=== PATIENT | female | born 1995 | race Caucasian/White ===

== ENCOUNTER 2019-09-14 10:26 | Emergency (ER) | payer OTHER, MEDICAID ==
[~2019-09-14] VITALS: Ht 157.5 cm; Wt 108.9 kg
[~2019-09-14 10:26] MED LIST: ALBUTEROL2.5 MG/0.5 INH; COLACE100 MG PO; NEBULIZER MISCELL; NOHOMEMEDICATIONS; PREDNISONE 20 M20 M1 PO; TRINATE TABLET1 TAB; VENTOLIN HFA 1818 GM; VENTOLIN HFA 1818 GM INH; [UNRECOGNIZED DRUG - SUPPLY] MC
[2019-09-14 11:13] LABS: ABSOLUTE BASOPHILS 0.1 thou/uL (0.0-0.2); ABSOLUTE EOSINOPHILS 0.4 thou/uL (0.0-0.7); ABSOLUTE LYMPHOCYTES 2.5 thou/uL (0.8-5.3); ABSOLUTE MONOCYTES 0.7 thou/uL (0.0-1.2); ABSOLUTE NEUTROPHILS 6.5 thou/uL (1.6-8.1); BASOPHILS 0.8 %; EOSINOPHILS 4.4 %; HEMOGLOBIN 14.4 gm/dL (12.0-15.0); LYMPHOCYTES 24.8 %; MCH 31.2 pg (26.0-34.0); MCHC 35.2 g/dL (28.0-37.0); MCV 88.6 fL (80.0-100.0); MONOCYTES 6.4 %; MPV 8.1 fl. (7.2-11.1); NUCLEATED RBCS 0 /100WBC; PLATELET COUNT* 232 thou/uL (150-400); POLYS 63.6 %; RBC 4.63 mil/uL (4.20-5.00); RDW-CV 13.4 % (10.5-14.5); WBC 10.2 thou/uL (4.0-11.0)
[2019-09-14 11:19] LABS: URINE BILIRUBIN NEGATIVE (Negative); URINE BLOOD TRACE (Negative); URINE CLARITY CLEAR; URINE COLOR YELLOW; URINE GLUCOSE-RANDOM NEGATIVE (Negative); URINE KETONES NEGATIVE (Negative); URINE LEUKOCYTES-REFLEX 2+ (Negative); URINE NITRITE-REFLEX NEGATIVE (Negative); URINE PROTEIN NEGATIVE (Negative); URINE UROBILINOGEN 0.2 E.U./dl (0.2-1.0)
[2019-09-14 11:23] LABS: CALCIUM 8.3 mg/dL (8.5-10.1); CREATININE 0.6 mg/dL (0.6-1.3); POTASSIUM 3.9 mmol/L (3.5-5.1)
[2019-09-14 11:27] LABS: TOTAL BILIRUBIN 0.3 mg/dL (<0.1-1.0); TOTAL PROTEIN 6.7 g/dL (6.4-8.2)
[2019-09-14 11:44] LABS: BACTERIA-REFLEX 1-9 Few /HPF (None Seen); CASTS None Seen /LPF (None Seen); CRYSTALS None Seen /LPF (None Seen); SQUAMOUS 0-3 Few /LPF (0-3); URINE RBC 0-2 Rare /HPF (0-2); URINE WBC-REFLEX 6-15 Few /HPF (0-5)
--- NOTE | 2019-09-14 13:43 | EKG ---
[place] [address] ELECTROCARDIOGRAM REPORT Name: GERMAN MON Room: [facility]#: [id number] Admission: 09/14/19 Attend Phys: Discharge: Date of : [birth year] Date of Service: 09/14/19 1059 Report #: [id number] THIS REPORT FOR: //name// [facility] ED Test Date: 2019-09-14 Test Time: 10:59:52 Pat Name: GERMAN MON Department: Room: Gender: F [employer] Rep: [facility] : 1995 Requested By: Doug Cintron Order Number: [id number] MD: Manjinder Tafoya Measurements Intervals [place] Rate: 81 P: 31 [place]: 116 QRS: 56 QRSD: 98 T: 39 QT: 390 QTc: 453 Interpretive Statements Sinus rhythm Borderline short [place] interval Baseline wander in lead(s) V2 No previous ECG available for comparison Electronically Signed On 09-14-2019 13:42:54 CDT by Manjinder Tafoya [email or web address] <ELECTRONICALLY SIGNED> By: Manjinder Tafoya MD, [facility] 09/14/19 1342 1059 1059 Manjinder Tafoya MD, FACC /EPI
[2019-09-14] MEDS ORDERED: VENTOLIN HFA 1818 GM INH (14:55)
[2019-09-14] MEDS ORDERED: PREDNISONE50 MG PO (14:55)
[2019-09-14] MEDS ORDERED: KEFLEX500 M1 PO (14:55)
[2019-09-14 15:00] VITALS: BP 125/70
== END 2019-09-14 15:19 | disposition home or self-care (01) ==
LOC: M.ERS 10:26
PROVIDERS: Emergency Medicine Emergency Medical Services
DX: O99.512 Diseases of the respiratory system complicating pregnancy, second trimester (principal); O23.42 Unspecified infection of urinary tract in pregnancy, second trimester; J45.909 Unspecified asthma, uncomplicated; R00.2 Palpitations; F17.210 Nicotine dependence, cigarettes, uncomplicated; F41.9 Anxiety disorder, unspecified; F32.9 Major depressive disorder, single episode, unspecified; Z3A.16 16 weeks gestation of pregnancy

== ENCOUNTER 2019-09-26 11:24 | Emergency (ER) | payer MEDICAID ==
[~2019-09-26] VITALS: Ht 157.5 cm; Wt 108.9 kg
[~2019-09-26 11:24] MED LIST changes: +KEFLEX500 M1 PO; +PREDNISONE50 MG PO
[2019-09-26] MEDS ORDERED: NEBULIZER MISCELL (12:11)
[2019-09-26] MEDS ORDERED: VENTOLIN HFA 1818 GM INH (12:11)
[2019-09-26] MEDS ORDERED: ALBUTEROL2.5 MG/3 M IH (12:11)
[2019-09-26] MEDS ORDERED: PREDNISONE 20 M20 M1 PO (12:11)
[2019-09-26 12:15] VITALS: BP 129/69
== END 2019-09-26 12:23 | disposition home or self-care (01) ==
LOC: M.ERS 11:24
DX: O99.512 Diseases of the respiratory system complicating pregnancy, second trimester (principal); J45.901 Unspecified asthma with (acute) exacerbation; Z98.890 Other specified postprocedural states; Z3A.18 18 weeks gestation of pregnancy